=== PATIENT | male | born 1980 | race American Indian/Alaskan Native ===

== ENCOUNTER 2020-11-06 18:09 | Emergency (ER) | payer OTHER ==
[2020-11-06 18:28] VITALS: BP 148/77
== END 2020-11-06 19:33 | disposition left against medical advice (07) ==
LOC: ED 18:09
DX: R06.00 Dyspnea, unspecified (principal); R42 Dizziness and giddiness; Z53.21 Procedure and treatment not carried out due to patient leaving prior to being seen by health care provider